=== PATIENT | female | born 1990 | race Caucasian/White ===

== ENCOUNTER 2021-01-25 19:30 | Emergency (ER) | payer OTHER ==
[2021-01-25 19:45] VITALS: BP 115/77; PULSE 85; TEMP 98.1; BMI 20.3
[2021-01-25] MEDS ORDERED: DIPHTH,PERTUSS(ACELL),TET 0.5 ML DISP.SYRIN IM ONE ×2 (20:13→20:24)
[2021-01-25 21:33] LABS: BASO % 0.8 % (0-2.0); EOS % 0.5 % (0-4.5); HEMATOCRIT 41.9 % (32.4-45.2); HEMOGLOBIN 14.2 GM/dL (10.7-15.3); LYMPH % 25.9 % (8-40); MCH 30.1 pg (25.7-33.7); MCHC 33.9 g/dl (32.0-36.0); MEAN CELL VOLUME 88.7 fl (80-96); MEAN PLT VOLUME 11.7 fl (7.5-11.1); MONO % 5.8 % (3.8-10.2); PLATELET COUNT 168 10^3/uL (134-434); RBC 4.72 M/mm3 (3.60-5.2); RDW 13.8 % (11.6-15.6); WHITE BLOOD COUNT 8.8 K/mm3 (4.0-10.0)
[2021-01-25 22:01] LABS: ALBUMIN 4.4 g/dl (3.4-5.0)
[2021-01-25 22:04] LABS: CREATININE 0.8 mg/dL (0.55-1.3)
[2021-01-25 22:06] LABS: BILIRUBIN,TOTAL 1.5 mg/dL (0.2-1)
[2021-01-25] MEDS ORDERED: HIV POST EXPOSURE PROPHYLAXIS KIT NR ONE (22:35)
[2021-01-25] MEDS ORDERED: HIV POST EXPOSURE PROPHYLAXIS KIT PO ONE (22:52)
[2021-01-25 22:59] LABS: HIV INTERPRETATION NEGATIVE (NEGATIVE)
== END 2021-01-25 23:27 | disposition home or self-care (01) ==
LOC: JERFT 19:30
PROC: 3E0234Z Introduction of Serum, Toxoid and Vaccine into Muscle, Percutaneous Approach (ICD-10-PCS; principal; 2021-01-25)
DX: Z77.21 Contact with and (suspected) exposure to potentially hazardous body fluids (principal)
CPT/HCPCS: 36415; 80053; 84703; 85025; 86704; 86803; 87340; 87389; 87517; 90715; 99284-25

== ENCOUNTER 2024-12-10 17:54 | Emergency (ER) | payer BC, OTHER ==
[2024-12-10 18:01] VITALS: BP 123/87; PULSE 96; RESP 18; TEMP 98.8; BMI 21.4
[2024-12-10 20:46] LABS: MCHC 31.9 g/dl (32.2-35.5); MEAN CELL VOLUME 88.3 fl (79.4-94.8); MEAN PLT VOLUME 13.1 fl (9.4-12.3); RDW 15.3 % (12.1-16.8)
[2024-12-10 21:05] LABS: GLUCOSE,RANDOM 84.0 mg/dL (74-106)
[2024-12-10 21:06] LABS: TOT PROT 7.4 g/dl (6.4-8.2)
[2024-12-10 21:07] LABS: CO2 26.0 mmol/L (21-32)
[2024-12-10 21:08] LABS: ALK PHOS 47.0 U/L (40-150)
[2024-12-10 21:11] LABS: CREATININE 0.87 mg/dL (0.55-1.3); SGOT/AST 20.0 U/L (5-34); SGPT/ALT 13.0 U/L (0-55)
[2024-12-10 21:31] LABS: HIV INTERPRETATION NEGATIVE (NEGATIVE)
[2024-12-10 21:32] LABS: HCV DIAGNOSTIC IN-HOUSE W/RFLX NON-REACTIVE (NONREACTIVE)
[2024-12-10 21:42] LABS: HCG,QUALITATIVE URINE Negative
[2024-12-10 21:55] LABS: EPI CELLS 8 /uL (0-25.1); HYALINE CASTS 0 /uL (0-3.1); URINE APPEARANCE CLEAR; URINE BACTERIA 74 /uL (0-1359); URINE BILIRUBIN NEGATIVE (NEGATIVE); URINE COLOR ORANGE; URINE GLUCOSE (UA) NEGATIVE (NEGATIVE); URINE KETONE NEGATIVE (NEGATIVE); URINE LEUK ESTERASE 1+ (NEGATIVE); URINE NITRITE NEGATIVE (NEGATIVE); URINE PROTEIN TRACE (NEGATIVE); URINE UROBILINOGEN 0.2 mg/dL (0.2-1.0); URINE WBC 18 /uL (0-25.8)
[2024-12-11 00:13] LABS: URINE RBC 424.6 /uL (0-23.9); YEAST NONE SEEN (NEGATIVE)
== END 2024-12-10 23:18 | disposition home or self-care (01) ==
LOC: JER 17:54 → JERFT 17:54
DX: N92.6 Irregular menstruation, unspecified (principal); N83.202 Unspecified ovarian cyst, left side; R42 Dizziness and giddiness
CPT/HCPCS: 36415; 76830-TC; 80053; 81003; 84703; 85025; 86803; 87077; 87086; 87389; 87491; 87591; 87661; 99284-25